=== PATIENT | female | born 2005 | race Caucasian/White ===

== ENCOUNTER 2024-06-19 15:40 | Outpatient (CLI) | payer OTHER, SELFPAY ==
--- OUTSIDE RECORDS SUMMARY | 2024-06-21 08:45 | XMS_ITS | Patient Health Record ---
Author Organization [facility] Address [address], [place] [id number] Support Name Relationship Address Phone FRANCOISE BERNAL Guarantor Unknown [phone] ALLERGIES Allergen (clinical drug ingredient) Drug/Non Drug Allergy documented on EMR Reaction Allergy Type Onset Date Status amoxicillin Amoxicillin rash Drug Allergy Act joe REASON FOR REFERRAL No Information MEDICATIONS Medication SIG (Take, Route, Frequency, Duration) Notes Start Date End Date Status [place] 0.25-35 MG-MCG 1 tablet Orally Once a day Active PLAN OF TREATMENT No Information Insurance Providers Payer Name Payer Address Payer Phone Subscriber Number Group Number Insured Name Patient Relationship to Insured Coverage Start Date Coverage End Date [employer] [address] [address] [place]STDEJON [phone] [id number] FRANCOISE BERNAL Self - patient is the insured
== END 2024-06-19 15:41 | disposition home or self-care (01) ==
LOC: NFLDREF 06-21 08:43
PROVIDERS: PCP Physician Assistant Medical; Referring Provider Physician Assistant Medical; Visit Provider Physician Assistant Medical
DX: Z11.3 Encounter for screening for infections with a predominantly sexual mode of transmission (principal)
CPT/HCPCS: 87491; 87591

== ENCOUNTER 2025-02-10 10:52 | Outpatient (CLI) | payer OTHER, SELFPAY | END 2025-02-10 10:53 | disposition home or self-care (01) | PROVIDERS: PCP Physician Assistant Medical; Visit Provider Physician Assistant Medical | DX: R53.83 Other fatigue (principal); R61 Generalized hyperhidrosis | CPT/HCPCS: 82306; 82728; 84443; 84481; 86376 ==

== ENCOUNTER 2025-06-20 10:08 | Outpatient (CLI) | payer OTHER, SELFPAY ==
[2025-06-20 13:24] LABS: Chlamydia DNA Amplified* NOT DETECTED (No Detected); GC DNA Amplified* NOT DETECTED (No Detected)
== END 2025-06-20 10:09 | disposition home or self-care (01) ==
LOC: FRMREF 10:09
PROVIDERS: PCP Physician Assistant Medical; Visit Provider Nurse Practitioner Family
DX: Z13.6 Encounter for screening for cardiovascular disorders (principal); Z11.3 Encounter for screening for infections with a predominantly sexual mode of transmission
CPT/HCPCS: 80061; 87491; 87591